=== PATIENT | female | born 1995 | race Caucasian/White ===

== ENCOUNTER 2017-01-08 16:14 | Emergency (ER) | payer OTHER ==
[~2017-01-08] VITALS: Ht 162.6 cm; Wt 77.3 kg
[~2017-01-08 16:14] MED LIST: METR500T PO
[2017-01-08 16:19] VITALS: BP 129/96; PULSE 100; RESP 16; O2SAT 100
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
[2017-01-08 17:38] LABS: APPEARANCE,URINE HAZY (CLEAR,HAZY); COLOR,URINE STRAW (YELLOW); OCCULT BLOOD,URINE NEGATIVE (NEGATIVE); PH,URINE 6.5 (5.0-8.0); UROBILINOGEN,URINE NORMAL (NORMAL)
[2017-01-08 17:47] LABS: BASOPHILS % (AUTO) 0.3 % (0-3); EOSINOPHILS % (AUTO) 1.1 % (0-5); MONOCYTES % (AUTO) 4.3 % (4-12); Mean Corpuscular Hemoglobin 27.8 pg (27.0-35.0); Mean Corpuscular Volume 84.1 fL (81-100); NEUTROPHILS % (AUTO) 71.3 % (40-74); Platelet Count 341 bil/L (150-400)
--- NOTE | 2017-01-08 18:38 | DRSVH ---
PROCEDURE: US APPENDIX INDICATIONS: ? cyst on right side TECHNIQUE: Real-time focused scanning was performed of the abdomen with attention to the appendix, with image do cumentation. COMPARISON: [facility], US, US [employer], 11/28/2015, 12:33. FINDINGS: Appendix visualization: Not visualized Associated findings: Echogenic fat: Unable to assess Appendiceal compressibility: Unable to assess Appendicoliths: Unable to assess Nearby free fluid: Not present Lymphadenopathy: Not present Tenderness on exam: Generalized pain present. IMPRESSION: Appendix not identified. There are no secondary signs of acute appendicitis. Dictated by: Durga Cruz M.D. on 01/08/2017 at 18:29 Approved by: Durga Cruz M.D. on 01/08/2017 at 18:31
--- NOTE | 2017-01-08 18:40 | DRSVH ---
PROCEDURE: US PELVIC SONOGRAM INDICATIONS: Question cyst on right side TECHNIQUE: Real-time scanning was performed of the pelvic organs, with image documentation. Additional endovagi nal scanning was necessary due to incomplete visualization of the adnexal and endometrial structures by transabdominal scanning. COMPARISON: [facility], US, US APPENDIX, 01/08/2017, 17:55. FINDINGS: PELVIS MEASUREMENTS: Uterus dimensions (orthrogonal): 6.31 cm, 2.87 cm, 5.55 cm Endometrium Thickness: 3 Right Ovary dimensions (orthogonal): 2.85 cm, 2.71 cm, 1.80 cm Left Ovary: Not identified. . Kidneys are normal. No pelvic fluid. IMPRESSION: Ultrasonographically normal right ovary and uterus. Left ovary is not identified cannot b e evaluated. Dictated by: Durga Cruz M.D. on 01/08/2017 at 18:31 Approved by: Durga Cruz M.D. on 01/08/2017 at 18:33
[2017-01-08 18:56] VITALS: BP 135/79; PULSE 73; RESP 20; O2SAT 99
== END 2017-01-08 18:58 | disposition home or self-care (01) ==
LOC: SED 16:14
DX: M54.5 Low back pain (principal); Z87.828 Personal history of other (healed) physical injury and trauma